=== PATIENT | female | born 1975 | race Caucasian/White ===

== ENCOUNTER 2017-03-05 15:50 | Emergency (ER) | payer OTHER, SELFPAY ==
--- NOTE | 2017-03-05 17:56 | RAD ---
PA AND LATERAL OF THE CHEST: 03/05/17 INDICATION: Cough. COMPARISON: Prior exam dated 03/18/11. FINDINGS: The lungs are clear. The cardiomediastinal silhouette is normal. No acute osseous abnormality is wisam dent. There is mild thoracic scoliosis which is stable. IMPRESSION: No acute cardiopulmonary abnormality. POS: [facility]
== END 2017-03-05 18:57 | disposition home or self-care (01) ==
LOC: ERS 15:50
DX: J20.9 Acute bronchitis, unspecified (principal); J06.9 Acute upper respiratory infection, unspecified; H92.01 Otalgia, right ear; F41.9 Anxiety disorder, unspecified
CPT/HCPCS: 71020

== ENCOUNTER 2017-04-11 15:52 | Outpatient (CLI) | payer OTHER ==
[2017-04-11 16:52] LABS: Nitrite Unable to Interpret (Negative)
[2017-04-11 16:53] LABS: Bilirubin Unable to Interpret (Negative); Blood, Urine Unable to Interpret (Negative); Glucose, Urine (Dipstick) Unable to Interpret mg/dL (Negative); Ketone, Urine Unable to Interpret mg/dL (Negative); Protein, Urine (Dipstick) Negative (Neg-Trace); Urobilinogen UNABLE TO INTERPRET mg/dL (0.2-1.0)
[2017-04-11 16:54] LABS: Bacteria/HPF None Seen HPF (None Seen); Hyaline Casts/LPF NONE SEEN LPF (0-3 Hyaline); RBC/HPF 0-3 HPF (0-3); Squamous Epithelial 0-3 HPF (0-3); WBC/HPF None Seen HPF (0-3)
[2017-04-11 17:42] LABS: Anion Gap 12 mmol/L (10-20); BUN (Urea Nitrogen) 14 mg/dL (7.0-18.7); Calc. Creatinine Clearance 0 mL/min (70-130); Calcium 9.1 mg/dL (7.8-10.44); Carbon Dioxide 26 mmol/L (22-29); Chloride 103 mmol/L (98-107); Estimated GFR-MDRD 76
--- NOTE | 2017-04-11 20:32 | CT ---
CT ABDOMEN AND PELVIS WITHOUT IV CONTRAST: Date: 04-11-17 History: Bilateral flank pain and gross hematuria. Comparison: 09-14-16 FINDINGS: Previously described bilobed left renal parapelvic cyst is again seen and unchanged in appearance fo r size. No renal or ureteral calculus is seen bilaterally. There is no hydronephrosis present. There is minimal linear scarring versus atelectasis left lung base. Lung bases otherwise clear. The liver, spleen, pancreas, bilateral adrenal glands, right kidney and urinary bladder demonstrate a grossly normal nonenhanced CT appearance. The fat containing right inguinal hernia is again visualized. Evidence of prior hysterectomy. Calcification seen associated with the right ovary with prominent do minant follicle in the right ovary. Again noted is grade I spondylolithsis at the L5-S1 level. No other interval change. IMPRESSION: 1. No renal or ureteral calculi are seen. 2. No evidence of hydronephrosis. There was mention of punctate right renal calculus on the prior st udy which is not visualized on today's exam. 3. Stable left renal parapelvic cyst. 4. Stable fat containing right renal inguinal hernia. POS: [facility]
== END 2017-04-11 15:53 | disposition home or self-care (01) ==
LOC: CT 15:52
PROVIDERS: ATTEND Urology
DX: R31.0 Gross hematuria (principal); R10.9 Unspecified abdominal pain; N28.1 Cyst of kidney, acquired; K44.9 Diaphragmatic hernia without obstruction or gangrene
CPT/HCPCS: 36415; 74176; 80048; 81001; 87086

== ENCOUNTER 2017-05-20 00:41 | Emergency (ER) | payer OTHER ==
[2017-05-20] MEDS ORDERED: HYDROcodone/Acetaminophen 5/325 mg Tablet ONE (00:57)
== END 2017-05-20 01:19 | disposition home or self-care (01) ==
LOC: SCSER 00:41
DX: L02.411 Cutaneous abscess of right axilla (principal); F41.9 Anxiety disorder, unspecified
CPT/HCPCS: 10060

== ENCOUNTER 2017-06-28 19:34 | Emergency (ER) | payer OTHER | END 2017-06-28 20:12 | disposition home or self-care (01) | LOC: SCSER 19:34 | DX: H00.024 Hordeolum internum left upper eyelid (principal); F41.9 Anxiety disorder, unspecified; Z79.899 Other long term (current) drug therapy | CPT/HCPCS: 99283 ==

== ENCOUNTER 2018-07-10 13:05 | Emergency (ER) | payer OTHER, SELFPAY ==
[2018-07-10] MEDS ORDERED: Acetaminophen 500 MG TAB ONE (14:02)
== END 2018-07-10 14:33 | disposition home or self-care (01) ==
LOC: ERS 13:05
DX: J10.1 Influenza due to other identified influenza virus with other respiratory manifestations (principal); F41.9 Anxiety disorder, unspecified; Z87.442 Personal history of urinary calculi
CPT/HCPCS: 87804; 99283

== ENCOUNTER 2020-04-09 14:45 | Emergency (ER) | payer SELFPAY ==
[~2020-04-09 14:45] MED LIST: Iopamidol-370 76% 500 ML 1 ML ONE
[2020-04-09 15:45] LABS: Bilirubin Negative (Negative); Blood, Urine Negative (Negative); Clarity Clear (Clear); Glucose, Urine (Dipstick) Normal (Negative); Ketone, Urine Negative (Negative); Leukocyte Negative Leu/uL (Negative); Nitrite Negative (Negative); Protein, Urine (Dipstick) Negative (Neg-Trace); Specific Gravity, Urine 1.016 (1.002-1.036); Urobilinogen Normal mg/dL (Less than 2); pH, Urine 6.5 (5.0-9.0)
[2020-04-09 15:58] LABS: #Basophils 0.1 thou/uL (0.0-0.2); #Eosinphils 0.1 thou/uL (0.0-0.7); #Monocytes 0.6 thou/uL (0.11-0.59); #Neutrophils 5.9 thou/uL (1.40-6.50); %Basophils 0.7 % (0.0-1.0); %Eosinophils 1.1 % (0.0-10.0); %Monocytes 6.2 % (0.0-10.0); %Neutrophils 61.1 % (42.0-75.0); Hemoglobin 13.8 g/dL (12.0-16.0); Mean Corpuscular HGB CONC 33.3 g/dL (32.0-36.0); Mean Corpuscular Hemoglobin 31.4 pg (27.0-31.0); Mean Corpuscular Volume 94.1 fL (78.0-98.0); Mean Platelet Volume 7.2 fL (7.4-10.4); Platelet Count 349 thou/uL (130-400); RBC Distribution Width 12.2 % (11.5-14.5); Red Blood Cell (RBC) Count 4.41 mill/uL (4.20-5.40); White Blood Cell (WBC) Count 9.6 thou/uL (4.8-10.8)
[2020-04-09 16:12] LABS: BHCG - Serum Negative (NEGATIVE); Pregs Control Background? CLEAR/WHITE (CLR/WHITE); Pregs Control Bar Appear? YES (CONTROL BAR)
[2020-04-09 16:13] LABS: ALT (SGPT) 24 U/L (8-55); AST (SGOT) 18 U/L (5-34); Albumin 4.2 g/dL (3.5-5.0); Alkaline Phosphatase 95 U/L (40-110); Anion Gap 12 mmol/L (10-20); BUN (Urea Nitrogen) 12 mg/dL (7.0-18.7); Bilirubin, Total 0.2 mg/dL (0.2-1.2); Calc. Creatinine Clearance 0 mL/min (70-130); Carbon Dioxide 27 mmol/L (22-29); Chloride 104 mmol/L (98-107); Estimated GFR-MDRD 67; Globulin 3.1 g/dL (2.4-3.5); Glucose 75 mg/dL (70-105); Lipase 29 U/L (8-78); Potassium 3.8 mmol/L (3.5-5.1); Protein, Total 7.3 g/dL (6.0-8.3); Sodium 139 mmol/L (136-145)
[2020-04-09] MEDS ORDERED: Morphine 4 MG/ML VIAL ONE (16:27)
[2020-04-09] MEDS ORDERED: Ondansetron PF 4 MG/2 ML Vial ONE (16:27)
[2020-04-09] MEDS ORDERED: Ketorolac Tromethamine 30 MG/ML VIAL ONE (18:23)
--- NOTE | 2020-04-09 18:35 | CT ---
CT ABDOMEN AND PELVIS WITH IV CONTRAST: 04/09/20 INDICTIONS: Abdominal pain. Diarrhea. Comparison made to an nonenhanced CT abdomen and pelvis dated 04/11/17. FINDINGS: The lung bases are clear. The liver, spleen and pancreas appear unremarkable and stable from the prior exam. A large left parapelvic cyst seen. This was present on the prior exam but does appear to have enlarge d since the prior study. It measures 5.5 to 6.0 cm greatest dimension today. Kidneys show symmetric enhancement and function. No evidence of urinary tract calculus. The ureters a re normal caliber. The urinary bladder is unremarkable. Small bowel loops appear unremarkable with nonspecific fluid filled distention distally which may rep resent nonspecific enteritis. The appendix appears normal. Colon appears unremarkable. There are scat tered diverticula in the sigmoid. Aorta normal caliber. No adenopathy or free fluid. Images through the pelvis show evidence of hysterectomy. There is a cyst in the left adnexa consisten t with a left ovarian cyst which measures approximately 2.5 cm. There are degenerative changes at L5-S1 with grade I anterolisthesis and posterior spondylolysis with broad based disc bulge at this level. Evidence of bilateral foraminal stenosis. IMPRESSION: 1. Large parapelvic cyst left kidney which was present previously but appears to have enlarged s lightly since 2017. 2. No evidence of acute process. 3. A left ovarian cyst. Patient appears to be post hysterectomy. 4. Spondylolisthesis and spondylolysis with degenerative disc changes at L5-S1 as described. POS: [facility]
== END 2020-04-09 19:28 | disposition home or self-care (01) ==
LOC: ERS 14:45
DX: K52.9 Noninfective gastroenteritis and colitis, unspecified (principal); E78.00 Pure hypercholesterolemia, unspecified; F41.9 Anxiety disorder, unspecified; F31.9 Bipolar disorder, unspecified; Z79.899 Other long term (current) drug therapy
CPT/HCPCS: 36415; 74177; 80053; 81003; 83690; 84703; 85025; 93005; 96374; 96375; J1885; J2270; J2405; Q9967

== ENCOUNTER 2020-05-27 19:14 | Emergency (ER) | payer SELFPAY ==
[2020-05-27] MEDS ORDERED: diphenhydrAMINE 50 MG/ML VIAL ONE (19:29)
[2020-05-27] MEDS ORDERED: Dexamethasone 10 MG/ML VIAL ONE (19:29)
== END 2020-05-27 19:18 | disposition home or self-care (01) ==
LOC: ERS 19:14
DX: L50.0 Allergic urticaria (principal); E78.00 Pure hypercholesterolemia, unspecified; Z79.899 Other long term (current) drug therapy
CPT/HCPCS: 96372; 99283; J1100; J1200

== ENCOUNTER 2020-10-06 21:25 | Emergency (ER) | payer SELFPAY ==
[2020-10-06 23:12] LABS: Bilirubin Negative (Negative); Blood, Urine Negative (Negative); Clarity Turbid (Clear); Glucose, Urine (Dipstick) Normal (Negative); Ketone, Urine Negative (Negative); Leukocyte Negative Leu/uL (Negative); Nitrite Negative (Negative); Protein, Urine (Dipstick) 20 mg/dL (Neg-Trace); Specific Gravity, Urine 1.026 (1.002-1.036); Urobilinogen Normal mg/dL (Less than 2); pH, Urine 5.5 (5.0-9.0)
[2020-10-06 23:22] LABS: #Basophils 0.1 thou/uL (0.0-0.2); #Eosinphils 0.1 thou/uL (0.0-0.7); #Lymphocytes 3.8 thou/uL (1.20-3.40); #Neutrophils 9.8 thou/uL (1.40-6.50); %Basophils 0.7 % (0.0-1.0); %Eosinophils 0.6 % (0.0-10.0); %Lymphocytes 25.6 % (21.0-51.0); %Monocytes 6.5 % (0.0-10.0); %Neutrophils 66.7 % (42.0-75.0); Hemoglobin 14.3 g/dL (12.0-16.0); Mean Corpuscular HGB CONC 33.1 g/dL (32.0-36.0); Mean Corpuscular Hemoglobin 30.6 pg (27.0-31.0); Mean Corpuscular Volume 92.6 fL (78.0-98.0); Mean Platelet Volume 6.8 fL (7.4-10.4); Platelet Count 356 thou/uL (130-400); RBC Distribution Width 12.4 % (11.5-14.5); Red Blood Cell (RBC) Count 4.68 mill/uL (4.20-5.40); White Blood Cell (WBC) Count 14.8 thou/uL (4.8-10.8)
[2020-10-06] MEDS ORDERED: Pantoprazole 40 MG VIAL ONE (23:40)
[2020-10-06] MEDS ORDERED: Ondansetron PF 4 MG/2 ML Vial ONE (23:40)
[2020-10-06 23:42] LABS: BHCG - Serum Negative (NEGATIVE); Pregs Control Background? CLEAR/WHITE (CLR/WHITE); Pregs Control Bar Appear? YES (CONTROL BAR)
[2020-10-06 23:59] LABS: Anion Gap 13 mmol/L (10-20); BUN (Urea Nitrogen) 16 mg/dL (7.0-18.7); Calc. Creatinine Clearance 0 mL/min (70-130); Carbon Dioxide 25 mmol/L (22-29); Chloride 105 mmol/L (98-107); Potassium 3.4 mmol/L (3.5-5.1); Sodium 140 mmol/L (136-145)
[2020-10-07] LABS: ALT (SGPT) 13 U/L (8-55); AST (SGOT) 14 U/L (5-34); Albumin 4.5 g/dL (3.5-5.0); Alkaline Phosphatase 90 U/L (40-110); Bilirubin, Total 0.4 mg/dL (0.2-1.2); Calcium 9.3 mg/dL (7.8-10.44); Globulin 3.4 g/dL (2.4-3.5); Glucose 115 mg/dL (70-105); Lipase 27 U/L (8-78); Protein, Total 7.9 g/dL (6.0-8.3)
== END 2020-10-07 00:57 | disposition home or self-care (01) ==
LOC: ERS 21:25
DX: K29.70 Gastritis, unspecified, without bleeding (principal); E78.00 Pure hypercholesterolemia, unspecified
CPT/HCPCS: 36415; 74022; 80053; 81003; 83690; 84703; 85025; 96374; 96375; C9113; J2405

== ENCOUNTER 2021-11-10 13:03 | Emergency (ER) | payer SELFPAY ==
[2021-11-10 14:49] LABS: #Eosinphils 0.1 thou/uL (0.0-0.7); #Lymphocytes 2.5 thou/uL (1.20-3.40); #Monocytes 0.5 thou/uL (0.11-0.59); #Neutrophils 3.6 thou/uL (1.40-6.50); %Basophils 0.5 % (0.0-1.0); %Eosinophils 1.2 % (0.0-10.0); %Lymphocytes 37.5 % (21.0-51.0); %Monocytes 6.8 % (0.0-10.0); Mean Corpuscular Volume 96.9 fL (78.0-98.0); Mean Platelet Volume 7.3 fL (7.4-10.4); Platelet Count 297 thou/uL (130-400); RBC Distribution Width 11.9 % (11.5-14.5); White Blood Cell (WBC) Count 6.7 thou/uL (4.8-10.8)
[2021-11-10 14:56] LABS: BHCG - Serum Negative (NEGATIVE); Pregs Control Background? CLEAR/WHITE (CLR/WHITE); Pregs Control Bar Appear? YES (CONTROL BAR)
[2021-11-10 15:16] LABS: ALT (SGPT) 16 U/L (8-55); AST (SGOT) 15 U/L (5-34); Albumin 4.4 g/dL (3.5-5.0); Alkaline Phosphatase 82 U/L (40-110); Anion Gap 12 mmol/L (10-20); BUN (Urea Nitrogen) 17 mg/dL (7.0-18.7); Bilirubin, Total 0.5 mg/dL (0.2-1.2); Calc. Creatinine Clearance 0 mL/min (70-130); Carbon Dioxide 27 mmol/L (22-29); Chloride 105 mmol/L (98-107); Globulin 3.1 g/dL (2.4-3.5); Glucose 81 mg/dL (70-105); Potassium 3.9 mmol/L (3.5-5.1); Protein, Total 7.5 g/dL (6.0-8.3); Sodium 140 mmol/L (136-145)
[2021-11-10] MEDS ORDERED: Ketorolac Tromethamine 30 MG/ML VIAL ONE (16:52)
[2021-11-10] MEDS ORDERED: Ondansetron ODT 4 MG TAB ONE (16:52)
[2021-11-10 17:00] LABS: Bilirubin Negative (Negative); Blood, Urine Negative (Negative); Clarity Clear (Clear); Glucose, Urine (Dipstick) Normal (Negative); Ketone, Urine 20 mg/dL (Negative); Leukocyte Negative Leu/uL (Negative); Nitrite Negative (Negative); Protein, Urine (Dipstick) Negative (Neg-Trace); Specific Gravity, Urine 1.013 (1.002-1.036); Urobilinogen Normal mg/dL (Less than 2); pH, Urine 5.5 (5.0-9.0)
== END 2021-11-10 17:09 | disposition home or self-care (01) ==
LOC: ERS 13:03
DX: R55 Syncope and collapse (principal); S06.0X0A Concussion without loss of consciousness, initial encounter; S00.03XA Contusion of scalp, initial encounter; X58.XXXA Exposure to other specified factors, initial encounter; Z79.899 Other long term (current) drug therapy
CPT/HCPCS: 36415; 70450; 80053; 81003; 84703; 85025; 93005; 96372; J1885; Q0162

== ENCOUNTER 2025-05-06 13:25 | Outpatient (CLI) | payer OTHER | END 2025-05-06 13:26 | disposition home or self-care (01) | LOC: ULT 13:25 | PROVIDERS: ATTEND Family Medicine | DX: N17.9 Acute kidney failure, unspecified (principal); N28.1 Cyst of kidney, acquired; K76.0 Fatty (change of) liver, not elsewhere classified; N28.89 Other specified disorders of kidney and ureter | CPT/HCPCS: 76770 ==